=== PATIENT | female | born 1995 | race African-American/Black ===

== ENCOUNTER 2017-06-07 03:53 | Emergency (ER) | payer MEDICAID ==
[~2017-06-07] VITALS: Ht 157.5 cm; Wt 58.5 kg
[2017-06-07 04:36] LABS: BASOPHILS # (AUTO) 0.03 x10^3/uL (0-0.1); BASOPHILS % (AUTO) 1 % (0-1); EOSINOPHILS # (AUTO) 0.04 x10^3/uL (0-0.4); EOSINOPHILS % (AUTO) 1 % (1-7); LYMPHOCYTES # (AUTO) 2.02 x10^3/uL (1-3.4); LYMPHOCYTES % (AUTO) 49 % (22-44); MD NO; MEAN CORPUSCULAR HEMOGLOBIN 24.2 pg (27.0-34.8); MEAN CORPUSCULAR HGB CONC 33.1 g/dL (32.4-35.8); MEAN CORPUSCULAR VOLUME 73.1 fL (80-100); MONOCYTES # (AUTO) 0.29 x10^3/uL (0.2-0.8); MONOCYTES % (AUTO) 7 % (2-9); NEUTROPHILS # (AUTO) 1.76 x10^3/uL (1.8-6.8); NEUTROPHILS % (AUTO) 43 % (42-75); PLATELET COUNT 249 x10^3/uL (130-400); RED BLOOD COUNT 4.99 x10^6/uL (3.82-5.3); RED CELL DISTRIBUTION WIDTH 17.1 % (9.6-15.2)
[2017-06-07 04:49] LABS: ALBUMIN 3.7 g/dL (3.4-5.0); ANION GAP 7 mmol/L (5-15); CALCIUM 8.9 mg/dL (8.5-10.1); CHLORIDE 108 mmol/L (98-107)
[2017-06-07] MEDS ORDERED: MORPHINE SULFATE 4 MG/ML, 1ML ONE (04:55)
[2017-06-07] MEDS ORDERED: ONDANSETRON 2MG/ML, 2ML ONE (04:55)
[2017-06-07 04:58] LABS: ALANINE AMINOTRANSFERASE 19 U/L (12-78); ALKALINE PHOSPHATASE 66 U/L (45-117); BILIRUBIN,TOTAL 0.4 mg/dL (0.2-1.0); CREATININE 0.98 mg/dL (0.55-1.02)
[2017-06-07] MEDS ORDERED: ONDANSETRON 2MG/ML, 2ML IVPush ONE (05:00)
[2017-06-07] MEDS ORDERED: MORPHINE SULFATE 4 MG/ML, 1ML IVPush PRN (05:00)
[2017-06-07] MEDS ORDERED: SODIUM CHLORIDE FLUSH 10ML SYR IVF ONE (05:00)
[2017-06-07 05:01] LABS: MICROSCOPIC NOT IND
[2017-06-07 05:04] LABS: CULTURE INDICATED? NO
[2017-06-07] MEDS ORDERED: KETOROLAC 30 MG/1 ML IVPush ONE (06:00)
[2017-06-07] MEDS ORDERED: KETOROLAC 30 MG/1 ML ONE (06:03)
[2017-06-07 08:41] VITALS: BP 106/58
== END 2017-06-07 08:43 | disposition home or self-care (01) ==
LOC: ED 07:23
DX: R10.2 Pelvic and perineal pain (principal)
CPT/HCPCS: 36415; 76700; 76830; 80053; 81003; 83690; 84703; 85025; 96374; 96375; 99285; J1885; J2405